=== PATIENT | female | born 1960 | race Caucasian/White ===

== ENCOUNTER → 2018-05-14 | Outpatient (REF) ==
[~2018-05-14] MED LIST: AUGMENTIN875TAB PO; B COMPLE3 OR; B12 LIQUID OR; CALCIUM500 M3 PO; CARAFATE1 GM/10 ML PO; CIPROFLOXACIN250 MG PO; CIPROFLOXACN500 MG PO; CLARITHROMYC500 M1 PO; COENZYME Q1050 M1 OR; CRESTOR5 MG PO; CYANOCOBALAM1000 MCG IJ; DIFLUCAN100 MG PO; DIFLUCAN150 MG PO; DIOVAN80 MG OR; DIOVAN80 MG PO; ELMIRON100 MG PO; FERRO SEQUEL PO; FERROUS SULF324 MG PO; FISH OIL1200 MG OR; KEFLEX500 MG PO; LEVAQUIN500 MG PO; LEVOTHYROXIN88 MCG OR; LEVOTHYROXIN88 MCG PO; MULTIVITAMIN OR; NAPROSYN375 MG PO; NASONEX50 MCG/AC; NEXIUM40 M1 PO; PRAVASTATIN10 MG OR; PRAVASTATIN10 MG PO; PRAVASTATIN20 MG PO; SERTRALINE50 MG PO; SYNTHROID88 MCG PO; TAM75CAP PO; VIBRAMYCIN100 M2 PO; VITAMIN B-12500 MC1 SL; VITAMIN D2000 UNI1; ZANTAC 150 PO; ZITHROMAX250 MG PO
[2018-05-14 11:01] LABS: CHOLESTEROL HDL RATIO 5.3 (<4.4 (CALC))
== END | disposition home or self-care (01) | DRG 951 ==
LOC: LAB 09:22
PROVIDERS: ATTEND Family Medicine
DX: Z02.6 Encounter for examination for insurance purposes (principal)

== ENCOUNTER 2021-01-03 07:48 | Day surgery (SDC) | payer OTHER ==
[~2021-01-03] VITALS: Ht 160 cm; Wt 88.0 kg
[~2021-01-03 07:48] MED LIST changes: +BUPROPION HCL150 M2 PO; +CAL MAG D PO; +COQ10200 MG PO; +DIOVAN160 MG PO; +HYDROCHLOROT25 MG PO; +MAGNEBIND400 MG PO; +MELATONIN1 MG PO; +MULTI VIT PO; +OMEGA 31000 MG PO; +PROBIOTI3 PO; +TURMERIC CURCUM1 CHW PO; +VITAMIN D PO; -VITAMIN D2000 UNI1; +XANAX0.25 MG PO
[2021-01-03 10:32] VITALS: BP 146/93
== END 2021-01-03 10:45 | disposition home or self-care (01) | DRG 951 ==
LOC: ENDO 07:48 → ORM 08:00 → ENDO 10:45
PROVIDERS: ATTEND Internal Medicine Gastroenterology
PROC: 0DJD8ZZ Inspection of Lower Intestinal Tract, Via Natural or Artificial Opening Endoscopic (ICD-10-PCS; principal; 2021-01-03)
PROC: 0DB48ZX Excision of Esophagogastric Junction, Via Natural or Artificial Opening Endoscopic, Diagnostic (ICD-10-PCS; 2021-01-03)
PROC: 0DB78ZX Excision of Stomach, Pylorus, Via Natural or Artificial Opening Endoscopic, Diagnostic (ICD-10-PCS; 2021-01-03)
DX: Z12.11 Encounter for screening for malignant neoplasm of colon (principal); K57.30 Diverticulosis of large intestine without perforation or abscess without bleeding; K64.4 Residual hemorrhoidal skin tags; K64.8 Other hemorrhoids; K21.00 Gastro-esophageal reflux disease with esophagitis, without bleeding; K44.9 Diaphragmatic hernia without obstruction or gangrene; K22.2 Esophageal obstruction; K29.70 Gastritis, unspecified, without bleeding; K31.9 Disease of stomach and duodenum, unspecified; I10 Essential (primary) hypertension; Z86.010 Personal history of colon polyps; Z85.3 Personal history of malignant neoplasm of breast